=== PATIENT | female | born 1960 | race Caucasian/White ===

== ENCOUNTER 2017-03-09 11:46 | Emergency (ER) | payer OTHER ==
[2017-03-09 11:57] VITALS: TEMP 98.8; O2SAT 97
--- NOTE | 2017-03-09 13:20 | EDPHY ---
H & P Stated Complaint: Fell hiking;hit head on rock;lac to forehead, L ankle soreness ,no LOC Time Seen by Provider: 03/09/17 13:17 HPI/ROS: HPI: This is a 56-year-old female who presents with Chief Complaint: Head laceration Location: Frontal Quality: Laceration Duration: 1 hour prior to arrival Signs and Symptoms: No loss of consciousness, no headache, no neck pain, no vision changes, no nausea vomiting, no tinnitus, no malocclusion, no chest pain , no shortness of breath, no abdominal pain Timing: Sudden Severity: Moderate Context: Patient and her were hiking when she slipped on some gravel, twisted her left ankle and fell directly on the ground hitting her forehead. She immediately started to bleed. Did not lose consciousness. hiked approximately 3 [address] to the car. 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 She does not take any blood thinners regularly. Tetanus is up-to-date. Modifying Factors: Direct pressure Comment: ROS: Constitutional: No fever, no chills, no weight loss Eyes: No blurred vision Respiratory: No shortness of breath, no cough Cardiovascular: No chest pain Gastrointestinal: No nausea, no vomiting no diarrhea Genitourinary: No dysuria Extremities: No myalgias Neurologic: No weakness, no numbness Skin: No rashes Hematologic: No bruising, no bleeding Source: Patient, Family Exam Limitations: No limitations - Personal History Current Tetanus Diphtheria and Acellular Pertussis (TDAP): Yes - Medical/Surgical History Hx Chronic Respiratory Disease: Yes Other PMH: lipids. depression. lung disease. Denies surgical history. - Social History Smoking Status: Never smoked - Physical Exam Exam: CONSTITUTIONAL: Pleasant talkative adult white female, awake and alert, no obvious distress HEENT: Deep, vertical 3.5 cm laceration in mid forehead extending into the hairline. normocephalic, PERRL, EOMI. Tympanic membranes clear. . Oropharynx clear, no exudate and moist pink mucosa. Airway patent. No lymphadenopathy. No meningismus. Cardiovascular: Normal S1/S2, regular rate, regular rhythm, without murmur rub or gallop. PULMONARY/CHEST: Symmetrical and nontender. Clear to auscultation bilaterally Good air movement. No accessory muscle usage. ABDOMEN: Soft, nondistended, nontender, no rebound, no guarding, no peritoneal signs, no masses or organomegaly. No CVAT. EXTREMITIES: 2/2 pulses, left ankle lateral swelling; dorsiflexion and plantar flexion intact. Achilles tendon intact. no deformities, no clubbing, no cyanosis or edema. NEUROLOGICAL: no focal neuro deficits. GCS 15. SKIN: Warm and dry, no erythema. no rash. Good capillary refill. Constitutional: Initial Vital Signs Temperature (C) 37.1 C 03/09/17 11:50 Heart Rate 104 H 03/09/17 11:50 Respiratory Rate 18 03/09/17 11:50 Blood Pressure 171/102 H 03/09/17 11:50 O2 Sat (%) 97 03/09/17 11:50 O2 Delivery Mode Room Air Allergies/Adverse Reactions: No Known Allergies Allergy (Unverified 03/09/17 11:51) Home Medications: Medication Instructions Recorded Antidepressant 03/09/17 Mycophenolate Mofetil [Cellcept] 500 mg PO 03/09/17 Statin 03/09/17 Sulfamethox/Tmp 800/160 mg 1 tab PO 03/09/17 [Bactrim Ds] predniSONE 5 mg PO 03/09/17 Medical Decision Making - Diagnostics Imaging Results: Imaging Impressions Ankle X-Ray 03/09/17 12:25 Impression: Lateral soft tissue swelling with possible tiny fracture fragment near the talofibular ligament. Procedures: Procedure: Laceration repair. Verbal consent was obtained from the patient. The deep, simple, 3 cm laceration on the forehead was anesthetized in the usual fashion 5 ml Bupivacaine with epinephrine. The wound was irrigated, draped and explored to its base with a gloved finger. There were no deep structures involved. No foreign bodies found. The wound was repaired with #10, 5-0 Vicryl in simple interrupted pattern. Good hemostasis was achieved. Bacitracin and clean sterile dressing was applied. The procedure was performed by myself. ED Course/Re-evaluation: No loss of consciousness and no neurologic signs. Head CT scan not indicated. Forehead laceration r#10 absorbable sutures were used for repair. Left ankle x-ray was ordered and reviewed by myself via PACs and shows no acute fracture/dislocation. grade 2 ankle sprain; placed in walking boot per patient request. Patient relates that she has crutches at home. No signs of neurovascular compromise/tenting of skin/compartment syndrome/ extremities and joints examined above and below area of concern and are neurovascularly intact. Differential Diagnosis: Head injury including but not limited to concussion, skull fracture, intraparenchymal contusion, subarachnoid, subdural and epidural hematoma. Departure - Departure Disposition: Home, Routine, Self-Care Clinical Impression: Laceration of forehead without complication Qualifiers: Encounter type: initial encounter Qualified Code(s): S01.81XA - Laceration without foreign body of other part of head, initial encounter Grade 2 ankle sprain Qualifiers: Encounter type: initial encounter Laterality: left Qualified Code(s): S93.402A - Sprain of unspecified ligament of left ankle, initial encounter Condition: Good Instructions: Ankle Sprain (ED), Care For Your Absorbable Stitches (ED), Facial Laceration (ED) Additional Instructions: Keep the dressing in place for 48 hours. After 48 hours, you may remove the dressing; wash the site daily with mild soap and water; then pat dry. Your laceration today was closed with absorbable sutures. They will dissolve on their own. You do not need to return to have them removed. Take ibuprofen 600-800 mg every 6-8 hours with food as needed for pain and inflammation. Use the walking boot and crutches until pain free. Apply ice for 30 minutes at a time; 2-3 times per day for the next 1-2 days. Follow up with Orthopedics in 7-10 days if ankle pain persists or worsens. The x-rays obtained in the emergency department today demonstrate no evidence of an obvious fracture. Sometimes fractures are not obvious on the initial set of x-rays performed in the ED. For this reason, you should have repeat x-rays performed in 7-10 days if you are having any pain exclude the possibility of an occult fracture. Referrals: BRENT VILCHIS MD [Other] - As per Instructions Imer Hunt MD [Medical Doctor] - As per Instructions
[2017-03-09 13:43] VITALS: BP 136/74; PULSE 78; RESP 16
== END 2017-03-09 13:43 | disposition home or self-care (01) ==
PROC: 0HQ1XZZ Repair Face Skin, External Approach (ICD-10-PCS; principal; 2017-03-09)
DX: S01.81XA Laceration without foreign body of other part of head, initial encounter (principal); S93.402A Sprain of unspecified ligament of left ankle, initial encounter; W01.198A Fall on same level from slipping, tripping and stumbling with subsequent striking against other object, initial encounter; Y99.8 Other external cause status; Y93.01 Activity, walking, marching and hiking
CPT/HCPCS: L4386